=== PATIENT | female | born 1985 | race American Indian/Alaskan Native ===

== ENCOUNTER 2020-06-02 21:15 | Emergency (ER) | payer MEDICAID, OTHER ==
[2020-06-03] MEDS ORDERED: ONDANSETRON 4 MG/2 ML INJ IV ONE (00:08)
[2020-06-03] MEDS ORDERED: SODIUM CHLORIDE 0.9% 1000 ML 1,000 ML IV ONE ×3 (00:08→06:41)
[2020-06-03] MEDS ORDERED: KETOROLAC 30 MG/1 ML INJ IV ONE (00:08)
[2020-06-03] MEDS ORDERED: FAMOTIDINE 20 MG/2 ML INJ IV ONE (00:10)
[2020-06-03 00:45] LABS: Basophils % (Auto) 0.2 % (0.0-1.8); Eosinophils % (Auto) 0.3 % (0.0-4.3); Hematocrit 39.2 % (30.3-42.9); Hemoglobin 12.6 gm/dl (10.1-14.3); Lymphocytes % (Auto) 7.9 % (13.4-35.0); Mean Corpuscular HGB Conc 32 % (30-34); Mean Corpuscular Volume 86 fl (79-97); Monocytes # (Auto) 1.4 K/mm3 (0.0-0.8); Monocytes % (Auto) 10.8 % (0.0-7.3); Platelet Count 325 K/mm3 (140-440); Red Blood Count 4.57 M/mm3 (3.65-5.03); Red Cell Distribution Width 14.6 % (13.2-15.2)
--- NOTE | 2020-06-03 00:47 | XRay Report ---
CHEST 1 VIEW INDICATION: ELEVATED HEART RATE. COMPARISON: None FINDINGS: SUPPORT DEVICES: None. HEART: Within normal limits. LUNGS/PLEURA: No acute air space or interstitial disease. ADDITIONAL FINDINGS: None. IMPRESSION: 1. No acute findings. Signer Name: Oswaldo Simon MD Signed: 06/03/2020 12:43 AM Workstation Name: [id number]
[2020-06-03 01:24] LABS: Alanine Aminotransferase 11 units/L (7-56); Albumin 3.6 g/dL (3.9-5); BUN/Creatinine Ratio 18; Blood Urea Nitrogen 18 mg/dL (7-17); Calcium 10.1 mg/dL (8.4-10.2); Hemolysis Index 2
[2020-06-03 01:25] LABS: Bilirubin,Urine NEG (Negative); Blood,Urine SM (Negative); Color,Urine Yellow (Yellow); Mucus,Urine FEW /HPF; Urobilinogen,Urine < 2.0 mg/dL (<2.0)
[2020-06-03 01:28] LABS: WBC,Urine > 182.0 /HPF (0.0-6.0)
[2020-06-03] MEDS ORDERED: cefTRIAXone/NS 1 GM/50 ML 1 GM/50 ML BAG IV ONE (02:07)
[2020-06-03] MEDS ORDERED: INSULIN REGULAR, HUMAN 100 UNITS/1 ML IV ONE (05:34)
--- NOTE | 2020-06-03 06:45 | Emergency Department Report ---
<ALTA ELIZALDE - Last Filed: 06/03/20 12:30> ED Abdominal Pain HPI - General Chief Complaint: Abdominal Pain Stated Complaint: DEHYDRATION/NAUSEA/DIZZY/SOB - Related Data Previous Rx's Medication Instructions Recorded Last Taken Type DOXYCYCLINE Hyclate [Vibramycin 100 mg PO Q12HR #14 capsule 01/01/18 Unknown Rx CAP] methylPREDNISolone [Medrol] 4 mg PO QDAY #1 tab.ds.pk 01/01/18 Unknown Rx Clindamycin [Clindamycin CAP] 300 mg PO Q8H #21 cap 01/25/18 Unknown Rx Triamcinolone 0.1% [Kenalog 0.1% 1 applic TP BID #1 tube 01/25/18 Unknown Rx CREAM] hydrOXYzine PAMOATE [Vistaril] 25 mg PO Q6HR PRN #15 capsule 01/25/18 Unknown Rx Ibuprofen [Motrin] 800 mg PO Q8HR PRN #30 tablet 06/03/20 Unknown Rx Ondansetron [Zofran Odt] 4 mg PO Q8HR PRN #20 tab.rapdis 06/03/20 Unknown Rx cephALEXin [Keflex] 500 mg PO Q6HR #40 capsule 06/03/20 Unknown Rx metFORMIN [Glucophage] 500 mg PO BID #60 tablet 06/03/20 Unknown Rx Allergies Allergy/AdvReac Type Severity Reaction Status Date / Time Sulfa (Sulfonamide Allergy Hives Verified 01/25/18 06:09 Antibiotics) ED Past Medical Hx - Medications Home Medications: Home Medications Medication Instructions Recorded Confirmed Last Taken Type DOXYCYCLINE Hyclate [Vibramycin 100 mg PO Q12HR #14 capsule 01/01/18 Unknown Rx CAP] methylPREDNISolone [Medrol] 4 mg PO QDAY #1 tab.ds.pk 01/01/18 Unknown Rx Clindamycin [Clindamycin CAP] 300 mg PO Q8H #21 cap 01/25/18 Unknown Rx Triamcinolone 0.1% [Kenalog 0.1% 1 applic TP BID #1 tube 01/25/18 Unknown Rx CREAM] hydrOXYzine PAMOATE [Vistaril] 25 mg PO Q6HR PRN #15 capsule 01/25/18 Unknown Rx Ibuprofen [Motrin] 800 mg PO Q8HR PRN #30 tablet 06/03/20 Unknown Rx Ondansetron [Zofran Odt] 4 mg PO Q8HR PRN #20 tab.rapdis 06/03/20 Unknown Rx cephALEXin [Keflex] 500 mg PO Q6HR #40 capsule 06/03/20 Unknown Rx metFORMIN [Glucophage] 500 mg PO BID #60 tablet 06/03/20 Unknown Rx ED Medical Decision Making - Lab Data Result diagrams: 06/03/20 00:13 06/03/20 00:13 ED Disposition Clinical Impression: Nausea and vomiting in adult patient, Acute urinary tract infection, Acute hyponatremia, Acute dehydration Hyperglycemia due to type 2 diabetes mellitus Qualifiers: Diabetes mellitus buttermaker insulin use: without buttermaker use Qualified Code(s): E11.65 - Type 2 diabetes mellitus with hyperglycemia Disposition: DC- TO HOME OR SELFCARE Is pt being admited?: No Does the pt Need Aspirin: No Condition: Stable Instructions: Nausea and Vomiting, Adult, Jton-lk-Wpmd, Urinary Tract Infection, Adult, Uwnj-pp-Ohxi, Dehydration, Adult, Bdam-oz-Zwtf, Type 2 Diabetes Mellitus, Self Care, Adult, Nsvt-iq-Itpb, Diabetes Mellitus Type 2 in Adults (ED), Abdominal Pain (ED) Additional Instructions: All lab test results were reviewed and showed significant hyperglycemia of 549 mg/dL initially. He also had acute hyponatremia of 125 mg/dL and significant urinary tract infection in urinalysis. You have received up to 3 L of normal saline in the ED to help control your hyperglycemia and UTI. He also received Rocephin 1 g IV for acute urinary tract infection. Therefore take medications with food, drink plenty of fluids and follow-up with your primary care physician in 5 to 7 days for reevaluation. Return to the ED immediately if symptoms get worse. Prescriptions: metFORMIN [Glucophage] 500 mg PO BID #60 tablet cephALEXin [Keflex] 500 mg PO Q6HR #40 capsule Ibuprofen [Motrin] 800 mg PO Q8HR PRN #30 tablet PRN Reason: Pain , Severe (7-10) Ondansetron [Zofran Odt] 4 mg PO Q8HR PRN #20 tab.rapdis PRN Reason: Nausea Referrals: DAVE LEYVA MD [Primary Care Provider] - 3-5 Days Print Language: YI <SANDOR VALDEZ - Last Filed: 06/05/20 06:48> ED Abdominal Pain HPI - General Source: patient Mode of arrival: Ambulatory Limitations: No Limitations - History of Present Illness Initial Comments: Patient is a 34-year-old -[place] female with a history of pmh-nptypas-qlepghfsf diabetes and was noncompliant with medications presents to the ED with complaint of acute onset persistent right flank pain, suprapubic pain and low back pain as well as nausea and vomiting, diffuse body aches and pains, chills and generalized weakness with lightheadedness for the last 1 week, worse in the last 2 days. Patient states that she was recently diagnosed with acute urinary tract infection by her primary care physician and took Macrobid for 7 days with no relief. Patient states that in the last 2 days her symptoms have worsened and that she has not been able to keep anything down because of intractable nausea and vomiting for the last 12 hours. Patient states that prior to arrival in the ED she felt as if her heart rate was elevated and she was very diaphoretic. Patient denies chest pain, shortness of breath, diarrhea, vaginal bleeding, vaginal discharge, sore throat, nasal and sinus congestion, syncope, dizziness or numbness and tingling or weakness of lower extremities bilaterally. MD Complaint: abdominal pain (Suprapubic pain and pressure), flank pain (Right flank pain), other (Nausea and vomiting; dysuria, urinary frequency and urgency and low back pain) -: Sudden, week(s) (1) Location: suprapubic, R flank Radiation: suprapubic, R flank Migration to: no migration Severity scale (0 -10): 8 Quality: aching, sharp Consistency: constant Improves With: nothing Worsens With: nothing Associated Symptoms: denies other symptoms, nausea, vomiting, chills, dysuria, anorexia, other (Lightheadedness and generalized weakness). denies: diarrhea, fever, constipation, hematemesis, hematochezia, melena, hematuria, syncope - Related Data LMP Date: 05/17/20 ED Review of Systems ROS: Stated complaint: DEHYDRATION/NAUSEA/DIZZY/SOB Other details as noted in HPI Constitutional: chills, malaise, weakness. denies: fever Eyes: denies: eye pain, eye discharge, vision change ENT: denies: ear pain, throat pain Respiratory: denies: cough, shortness of breath, wheezing Cardiovascular: denies: chest pain, palpitations Endocrine: no symptoms reported Gastrointestinal: abdominal pain (Right flank and suprapubic pain), nausea, vomiting. denies: diarrhea, hematemesis, melena, hematochezia Genitourinary: urgency, dysuria, frequency. denies: discharge, abnormal menses, dyspareunia Musculoskeletal: back pain (Low back pain). denies: joint swelling, arthralgia Skin: denies: rash, lesions Neurological: headache, other (Lightheadedness). denies: weakness, paresthesias Psychiatric: denies: anxiety, depression Hematological/Lymphatic: denies: easy bleeding, easy bruising ED Past Medical Hx - Past Medical History Hx Diabetes: Yes - Surgical History Additional Surgical History: Csection X3. Partial Hysterectomy. Fractured Right Femur - Social History Smoking Status: Never Smoker Substance Use Type: None ED Physical Exam - General Limitations: No Limitations General appearance: alert, in no apparent distress - Head Head exam: Present: atraumatic, normocephalic, normal inspection - Eye Eye exam: Present: normal appearance, PERRL, EOMI Pupils: Present: normal accommodation - ENT ENT exam: Present: normal exam, normal orophraynx, mucous membranes moist, TM's normal bilaterally, normal external ear exam - Neck Neck exam: Present: normal inspection, full ROM - Respiratory Respiratory exam: Present: normal lung sounds bilaterally. Absent: respiratory distress, wheezes, rales, rhonchi, stridor, chest wall tenderness, accessory muscle use, decreased breath sounds, prolonged expiratory - Cardiovascular Cardiovascular Exam: Present: normal rhythm, tachycardia, normal heart sounds. Absent: systolic murmur, diastolic murmur, rubs, gallop - GI/Abdominal GI/Abdominal exam: Present: soft, tenderness (Palpable severe right flank tenderness, and mild suprapubic tenderness), normal bowel sounds. Absent: guarding, rebound, hyperactive bowel sounds, hypoactive bowel sounds, organomegaly, mass - Bi-manual exam: Present: other (Pelvic exam deferred) - Extremities Exam Extremities exam: Present: normal inspection, full ROM, normal capillary refill - Back Exam Back exam: Present: normal inspection, full ROM. Absent: tenderness, CVA tenderness (R), CVA tenderness (L), muscle spasm, paraspinal tenderness, vertebral tenderness - Neurological Exam Neurological exam: Present: alert, oriented X3, CN II-XII intact, normal gait, reflexes normal - Psychiatric Psychiatric exam: Present: normal affect, normal mood, anxious - Skin Skin exam: Present: warm, dry, intact, normal color. Absent: rash ED Course Vital Signs 06/02/20 06/03/20 06/03/20 22:21 03:31 08:34 Temperature 99.6 F Pulse Rate 145 H 82 Respiratory 18 18 18 Rate Blood Pressure 124/85 Blood Pressure 124/78 [Left] O2 Sat by Pulse 100 100 99 Oximetry 06/03/20 08:38 Temperature 98.8 F Pulse Rate 99 H Respiratory 18 Rate Blood Pressure Blood Pressure 113/71 [Left] O2 Sat by Pulse 99 Oximetry ED Medical Decision Making - Lab Data Result diagrams: 06/03/20 00:13 06/03/20 00:13 - EKG Data EKG shows normal: sinus rhythm Rate: tachycardia - EKG Data Interpretation: other (Paired PVCs) - Radiology Data Radiology results: report reviewed, [place] [address] XRay Report Signed Patient: MACARENA KAUR MR#: [id number] : 1985 Acct:[id number] Age/Sex: 34 / F ADM Date: 06/02/20 Loc: ED Attending Dr: Ordering Physician: FARIDA PRETTY Date of Service: 06/03/20 Procedure(s): XR chest 1V ap Accession Number(s): [id number] cc: FARIDA PRETTY Fluoro Time In Minutes: CHEST 1 VIEW INDICATION: ELEVATED HEART RATE. COMPARISON: None FINDINGS: SUPPORT DEVICES: None. HEART: Within normal limits. LUNGS/PLEURA: No acute air space or interstitial disease. ADDITIONAL FINDINGS: None. IMPRESSION: 1. No acute findings. Signer Name: Oswaldo Simon MD Signed: 06/03/2020 12:43 AM Workstation Name: [id number] Transcribed By: VALERY Dictated By: Oswadlo Simon MD Electronically Authenticated By: Oswaldo Simon MD Signed Date/Time: 06/03/2042 DD/ TD/TT: - Medical Decision Making This is a 34-year-old -[place] female with a history of cke-kkwvaha-glbmwjprx diabetes and was noncompliant with medications presents to the ED with complaint of acute onset persistent right flank pain, suprapubic pain and low back pain as well as nausea and vomiting, diffuse body aches and pains, chills and generalized weakness with lightheadedness for the last 1 week, worse in the last 2 days. Patient states that she was recently diagnosed with acute urinary tract infection by her primary care physician and took Macrobid for 7 days with no relief. Patient states that in the last 2 days her symptoms have worsened and that she has not been able to keep anything down because of intractable nausea and vomiting for the last 12 hours. Patient states that prior to arrival in the ED she felt as if her heart rate was elevated and she was very diaphoretic. In the ED, patient is alert and oriented x3 and is not in distress but afebrile and tachycardic in triage. Chest x-ray shows no acute cardiopulmonary abnormalities or pneumonitis. EKG shows sinus tachycardia with a ventricular rate of 133 bpm and paired PVCs. Patient was treated in the ED with antiemetics, also given normal saline 2 L IV bolus initially in the ED as well as pain medications. Lab test results were reviewed and showed acute leukocytosis of 12,900, acute hyponatremia 125 mmol/L, acute hypochloremia of 89.2 mmol/L and hyperglycemia of 549 mg/dL. On reevaluation, patient dbiby-ro-yzof blood sugar was 470 mg/dL, and patient was treated with 12 units of regular insulin IV. On reevaluation, patient point of care glucose was 376 mg/dL after 2 L of normal saline IV fluids as well as 12 units of insulin. Additional 1 L normal saline IV bolus was also given to the patient and the patient observed in the ED. Patient kicnb-kz-wzfv insulin she will be rechecked after 1 hour and the patient is likely to be discharged home with a presc ription of her regular Metformin medications, antibiotics for urinary tract infection, antiemetics and pain medications. Patient care was transferred to Ms. Montse Elizalde PA-C at shift change at 0700 hours. - Differential Diagnosis UTI; dehydration; hyperglycemia; ovarian cyst; kidney stones; Critical care attestation.: If time is entered above; I have spent that time in minutes in the direct care of this critically ill patient, excluding procedure time. ED Disposition Is pt being admited?: No Does the pt Need Aspirin: No Time of Disposition: 06:56
[2020-06-03 08:38] VITALS: BP 113/71
--- NOTE | 2020-06-04 13:43 | Electrocardiograph Report ---
[facility] Test Date: 2020-06-02 Test Time: 22:26:53 Pat Name: MACARENA KAUR Department: Room: Gender: F Nutrition Services Worker: HELGA : 1985 Requested By: SANDOR VALDEZ Order Number: [id number] Reading MD: Angel Marquez Measurements Intervals [place] Rate: 133 P: 69 FL: 126 QRS: 64 QRSD: 70 T: 31 QT: 279 QTc: 415 Interpretive Statements Sinus tachycardia Otherwise normal ECG No previous ECG available for comparison Electronically Signed On 06-04-2020 13:42:33 EDT by Angel Marquez
== END 2020-06-03 08:38 | disposition home or self-care (01) ==
LOC: ED 21:15
DX: E11.65 Type 2 diabetes mellitus with hyperglycemia (principal); N39.0 Urinary tract infection, site not specified; E86.0 Dehydration; E87.1 Hypo-osmolality and hyponatremia; R11.2 Nausea with vomiting, unspecified; Z98.890 Other specified postprocedural states; Z88.2 Allergy status to sulfonamides
CPT/HCPCS: 36415; 71045; 80053; 81001; 82962; 83690; 84484; 85025; 93005; 96361; 96365; 96366; 96375; 99284; J0696; J1885; J2405; J7030; J1815

== ENCOUNTER 2021-09-08 17:35 | Emergency (ER) | payer MEDICAID ==
[2021-09-08 17:59] VITALS: BP 129/75
[2021-09-08 19:02] LABS: Hematocrit 36.7 % (30.3-42.9); Hemoglobin 11.7 gm/dl (10.1-14.3); Mean Corpuscular HGB Conc 32 % (30-34); Mean Corpuscular Volume 85 fl (79-97); Platelet Count 342 K/mm3 (140-440); Red Blood Count 4.34 M/mm3 (3.65-5.03); Red Cell Distribution Width 13.2 % (13.2-15.2)
[2021-09-08 19:11] LABS: Bilirubin,Urine NEG (Negative); Blood,Urine SM (Negative); Color,Urine Yellow (Yellow)
[2021-09-08 19:15] LABS: Bacteria,Urine 3+ /HPF (Negative)
[2021-09-08 19:17] LABS: Protein,Urine >500 mg/dL (Negative); WBC,Urine > 182.0 /HPF (0.0-6.0)
[2021-09-08 19:18] LABS: HCG Qualitative,Urine Negative (Negative)
[2021-09-08 19:26] LABS: BUN/Creatinine Ratio 10
[2021-09-08 19:27] LABS: Alanine Aminotransferase 26 units/L (7-56); Albumin 3.5 g/dL (3.9-5); Blood Urea Nitrogen 9 mg/dL (7-17); Hemolysis Index 0
[2021-09-08] MEDS ORDERED: ONDANSETRON 4 MG ODT TAB PO ONE (21:19)
[2021-09-08] MEDS ORDERED: KETOROLAC 60 MG/2 ML INJ IM ONE (21:19)
[2021-09-08] MEDS ORDERED: LIDOCAINE-MPF (1%) 10 MG/1 ML VIAL 5 ML INFILTRATI ONE (21:19)
[2021-09-08] MEDS ORDERED: HYDROcodone/ACETAMINOPHEN 5-325 MG TAB PO ONE (21:19)
--- NOTE | 2021-09-08 21:42 | Emergency Department Report ---
ED Back Pain/Injury HPI - General Chief Complaint: Pain General Stated Complaint: FEVER/BODY ACHES/HEADACHE/FATIGUE Source: patient Limitations: No Limitations - History of Present Illness Initial Comments: Patient is a 35-year-old -Maltese female with a history of pjl-tdaysou-phyuhakbl diabetes who presents to the ED with complaint of acute onset persistent low back pain, diffuse body aches and pains, urinary frequency and urgency, fever and chills for the last 1 week. Patient also complains of nausea and vomiting. Patient denies dizziness, syncope, chest pain or shortness of breath, abdominal pain, dysuria, vaginal bleeding or vaginal discharge, cough, sore throat, nasal and sinus congestion, traumatic injury or headache. MD Complaint: back pain (Low back pain), other (Diffuse body aches and pains, fever, chills,) -: Gradual, week(s) (1) Similar Symptoms Previously: Yes (Chronic recurrent urinary tract infections) Place: home Radiation: none Severity: severe Severity scale (0 -10): 8 Quality: sharp, aching Consistency: constant Improves With: none Worsens With: movement, walking Context: unknown Associated Symptoms: denies other symptoms, fever/chills, loss of appetite, malaise. denies: confusion, weakness, chest pain, numbness, cough, difficulty urinating, diaphoresis, incontinence, constipation, headaches, abdominal pain, nausea/vomiting, rash, seizure, syncope, other Treatments Prior to Arrival: NSAIDS - Related Data Previous Rx's Medication Instructions Recorded Last Taken Type DOXYCYCLINE Hyclate [Vibramycin 100 mg PO Q12HR #14 capsule 01/01/18 Unknown Rx CAP] methylPREDNISolone [Medrol] 4 mg PO QDAY #1 tab.ds.pk 01/01/18 Unknown Rx Clindamycin [Clindamycin CAP] 300 mg PO Q8H #21 cap 01/25/18 Unknown Rx Triamcinolone 0.1% [Kenalog 0.1% 1 applic TP BID #1 tube 01/25/18 Unknown Rx CREAM] hydrOXYzine PAMOATE [Vistaril] 25 mg PO Q6HR PRN #15 capsule 01/25/18 Unknown Rx Ondansetron [Zofran Odt] 4 mg PO Q8HR PRN #20 tab.rapdis 06/03/20 Unknown Rx metFORMIN [Glucophage] 500 mg PO BID #60 tablet 06/03/20 Unknown Rx Baclofen 20 mg PO Q12H PRN #24 tab 09/08/21 Unknown Rx Ibuprofen [Motrin 800 MG tab] 800 mg PO Q8HR PRN #30 tablet 09/08/21 Unknown Rx Ondansetron [Zofran Odt] 4 mg PO Q8HR PRN #20 tab.rapdis 09/08/21 Unknown Rx cephALEXin [Keflex] 500 mg PO Q6HR #40 capsule 09/08/21 Unknown Rx traMADoL [Ultram] 50 mg PO Q6HR PRN #12 tablet 09/08/21 Unknown Rx Allergies Allergy/AdvReac Type Severity Reaction Status Date / Time Sulfa (Sulfonamide Allergy Hives Verified 01/25/18 06:09 Antibiotics) ED Review of Systems ROS: Stated complaint: FEVER/BODY ACHES/HEADACHE/FATIGUE Other details as noted in HPI Constitutional: chills, fever, malaise. denies: weakness Eyes: denies: eye pain, eye discharge, vision change ENT: denies: ear pain, throat pain, congestion Respiratory: denies: cough, shortness of breath, wheezing Cardiovascular: denies: chest pain, palpitations Endocrine: no symptoms reported Gastrointestinal: denies: abdominal pain, nausea, vomiting, diarrhea Genitourinary: urgency, frequency. denies: dysuria, discharge, abnormal menses, dyspareunia Musculoskeletal: back pain (Low back pain), arthralgia, myalgia. denies: joint swelling Skin: denies: rash, lesions Neurological: denies: headache, weakness, paresthesias Psychiatric: denies: anxiety, depression Hematological/Lymphatic: denies: easy bleeding, easy bruising ED Past Medical Hx - Past Medical History Hx Diabetes: Yes Additional medical history: narrow ureter, kidney infection - Surgical History Additional Surgical History: Csection X3. Partial Hysterectomy. Fractured Right Femur, renal stent - Social History Smoking Status: Never Smoker - Medications Home Medications: Home Medications Medication Instructions Recorded Confirmed Last Taken Type DOXYCYCLINE Hyclate [Vibramycin 100 mg PO Q12HR #14 capsule 01/01/18 Unknown Rx CAP] methylPREDNISolone [Medrol] 4 mg PO QDAY #1 tab.ds.pk 01/01/18 Unknown Rx Clindamycin [Clindamycin CAP] 300 mg PO Q8H #21 cap 12/10/18 Unknown Rx Triamcinolone 0.1% [Kenalog 0.1% 1 applic TP BID #1 tube 01/25/18 Unknown Rx CREAM] hydrOXYzine PAMOATE [Vistaril] 25 mg PO Q6HR PRN #15 capsule 01/25/18 Unknown Rx Ondansetron [Zofran Odt] 4 mg PO Q8HR PRN #20 tab.rapdis 06/03/20 Unknown Rx metFORMIN [Glucophage] 500 mg PO BID #60 tablet 06/03/20 Unknown Rx Baclofen 20 mg PO Q12H PRN #24 tab 09/08/21 Unknown Rx Ibuprofen [Motrin 800 MG tab] 800 mg PO Q8HR PRN #30 tablet 09/08/21 Unknown Rx Ondansetron [Zofran Odt] 4 mg PO Q8HR PRN #20 tab.rapdis 09/08/21 Unknown Rx cephALEXin [Keflex] 500 mg PO Q6HR #40 capsule 09/08/21 Unknown Rx traMADoL [Ultram] 50 mg PO Q6HR PRN #12 tablet 09/08/21 Unknown Rx ED Physical Exam - General Limitations: No Limitations General appearance: alert, in no apparent distress - Head Head exam: Present: atraumatic, normocephalic, normal inspection - Eye Eye exam: Present: normal appearance, PERRL, EOMI Pupils: Present: normal accommodation - ENT ENT exam: Present: normal exam, normal orophraynx, mucous membranes moist, TM's normal bilaterally, normal external ear exam - Neck Neck exam: Present: normal inspection, full ROM. Absent: tenderness - Respiratory Respiratory exam: Present: normal lung sounds bilaterally. Absent: respiratory distress, wheezes, rales, rhonchi, stridor, chest wall tenderness, accessory muscle use, decreased breath sounds, prolonged expiratory - Cardiovascular Cardiovascular Exam: Present: normal rhythm, tachycardia, normal heart sounds. Absent: systolic murmur, diastolic murmur, rubs, gallop - GI/Abdominal GI/Abdominal exam: Present: soft, normal bowel sounds. Absent: tenderness, guarding, rebound, hyperactive bowel sounds, hypoactive bowel sounds, organomegaly, bruit - Extremities Exam Extremities exam: Present: normal inspection, full ROM, normal capillary refill. Absent: tenderness - Back Exam Back exam: Present: normal inspection, full ROM, tenderness (Palpable lumbosacral paraspinal musculoskeletal tenderness), CVA tenderness (R), CVA tenderness (L), muscle spasm, paraspinal tenderness. Absent: vertebral tenderness, rash noted - Neurological Exam Neurological exam: Present: alert, oriented X3, CN II-XII intact, normal gait, reflexes normal - Psychiatric Psychiatric exam: Present: normal affect, normal mood - Skin Skin exam: Present: warm, dry, intact, normal color. Absent: rash ED Course Vital Signs 09/08/21 17:54 Temperature 101.8 F H Pulse Rate 118 H Respiratory 14 Rate Blood Pressure 129/75 O2 Sat by Pulse 97 Oximetry ED Medical Decision Making - Lab Data Result diagrams: 09/08/21 18:40 09/08/21 18:40 - Medical Decision Making This is a 35-year-old -Maltese female with history of tbn-rjdtkzr-jwmmygoxh diabetes who presents to the ED with complaint of acute onset persistent low back pain, diffuse body aches and pains, urinary frequency and urgency, fever and chills for the last 1 week. Patient also complains of nausea and vomiting. In the ED, patient is alert and oriented x3 and is not in any distress. Patient is febrile and tachycardic in triage. Patient was treated for pain and also treated for fever in the ED. The lab test results were reviewed and are all nonactionable except for mild hyponatremia 133 mmol/L and significant urinary tract infection in urinalysis characterized by nitrite positive positive nitrites and greater than 182 white blood cells, large leukocyte esterase and 3+ bacteriuria. Patient was treated for acute urinary tract infection with Rocephin 1 g intramuscular injection and also given antiemetics. On reevaluation, patient's pain is well controlled with medications and fever as well as tachycardia resolved. Patient was discharged home on pain medications and antibiotics and advised to follow-up with her [facility] physician in 7 to 10 days for reevaluation. Patient advised return to the ED immediately if symptoms get worse. - Differential Diagnosis UTI; Muscle spasm; muscle strain; pyelonephritis Critical care attestation.: If time is entered above; I have spent that time in minutes in the direct care of this critically ill patient, excluding procedure time. ED Disposition Clinical Impression: Acute urinary tract infection, Fever and chills, Nausea and vomiting in adult patient, Spasm of muscle of lower back Acute low back pain Qualifiers: Back pain laterality: bilateral Sciatica presence: without sciatica Qualified Code(s): M54.50 - Low back pain, unspecified Disposition: 01 HOME / SELF CARE / HOMELESS Is pt being admited?: No Does the pt Need Aspirin: No Condition: Stable Instructions: Nausea and Vomiting, Adult, Kzej-uq-Kwpv, Urinary Tract Infection, Adult, Saxu-xh-Oern, Muscle Cramps and Spasms, Jlow-ia-Gpry, Fever, Adult, Abpi-xv-Ihta Additional Instructions: Take medication with food, drink plenty of fluids, follow-up with your primary care physician in 7 to 10 days for reevaluation. Return to the ED immediately if symptoms get worse. Prescriptions: Baclofen 20 mg PO Q12H PRN #24 tab PRN Reason: Muscle Spasm cephALEXin [Keflex] 500 mg PO Q6HR #40 capsule Ibuprofen [Motrin 800 MG tab] 800 mg PO Q8HR PRN #30 tablet PRN Reason: Pain , Severe (7-10) traMADoL [Ultram] 50 mg PO Q6HR PRN #12 tablet PRN Reason: Pain Ondansetron [Zofran Odt] 4 mg PO Q8HR PRN #20 tab.rapdis PRN Reason: Nausea Referrals: [facility] [Provider Group] - 7-10 days Forms: Work/School Release Form(ED) Time of Disposition: 21:45 Print Language: MOHAWK
== END 2021-09-08 22:52 | disposition home or self-care (01) ==
LOC: ED 17:35
DX: N39.0 Urinary tract infection, site not specified (principal); R50.9 Fever, unspecified; R11.2 Nausea with vomiting, unspecified; M62.830 Muscle spasm of back; M54.50 Low back pain, unspecified; E11.9 Type 2 diabetes mellitus without complications; Z88.1 Allergy status to other antibiotic agents; Z79.899 Other long term (current) drug therapy
CPT/HCPCS: 36415; 80053; 81001; 81025; 85027; 96372; 99283; J0696; J1885; J3490; Q0162